=== PATIENT | female | born 1955 | race Caucasian/White ===

== ENCOUNTER 2017-04-20 15:23 | Emergency (ER) | payer OTHER ==
--- NOTE | ~2017-04-20 | CT4 ---
[facility] A Service of [facility] RADIOLOGY TEXT RESULTS PATIENT: KAE LUQUE LOCATION: [facility] : 53 UNIT #: [id number] AGE: [address]: Armando Mcqueen MD SEX: F ORDER DR: [id number] [facility] [address] [place], [place] [address] [id number] MR#: [id number] Acc #: [id number] NAME: KAE LUQUE. : 1955 SEX: F STUDY DATE/TIME: 04/20/2017 16:26 UNIT: [facility] ROOM: STUDY DESCRIPTION: CT Abd and Pelv Wo Cont Attending Physician: Armando Mcqueen M.D. Ordering Physician: Armando Mcqueen M.D. Primary Care Physician: Jame Gold M.D. MEDICAL IMAGING REPORT This report is preliminary unless electronic signature is present EXAM CT abdomen and pelvis without contrast DATE: 04/20/2017 HISTORY Left flank pain which started today. Nausea and vomiting. COMPARISON CT abdomen and pelvis with contrast 12/06/2013. PROCEDURE 3 mm noncontrast axial images through the abdomen and pelvis. Enteric contrast was not administered. Sagittal and coronal reformatted images were obtained. This CT exam was performed with one or more of the following radiation dose reduction techniques: automatic exposure control, adjustment of mA and/or kV according to patient size, and iterative reconstruction. FINDINGS A 2 mm stone is lodged within the left ureteropelvic junction resulting in mild left hydronephrosis and hydroureter. There is mild left perinephric inflammatory stranding. Benign calcified granulomatous changes are present in the spleen. There is a small esophageal hiatal hernia. Cholecystectomy. Noncontrast appearance of the liver, pancreas, adrenals and right kidney is within normal limits. Normal appendix. No free air or free fluid. Wide-mouth ventral abdominal hernia containing nonobstructed small bowel loops. PELVIS FINDINGS: Surgical changes of the sigmoid colon. Urinary bladder is decompressed. Uterus and rectum are normal. No pelvic adenopathy or free fluid is seen. [facility] A Service of [facility] RADIOLOGY TEXT RESULTS PATIENT: KAE LUQUE LOCATION: [facility] : 53 UNIT #: [id number] AGE: [address]: Armando Mcqueen MD SEX: F ORDER DR: Advanced loss of disc height is present at L5-S1 with posterior osteophyte formation. No acute osseous abnormalities are identified. IMPRESSION 1. A 2 mm stone in the left ureteropelvic junction with mild left hydronephrosis, and mild left perinephric inflammatory stranding. 2. Ventral abdominal hernia containing nonobstructed small bowel. 3. Surgical change of the sigmoid colon. 4. Cholecystectomy. 5. Normal appendix. 6. Small esophageal hiatal hernia. Dictated by... Genevieve Martin M.D. THIS IS AN ELECTRONICALLY VERIFIED REPORT Genevieve Martin M.D. at 04/23/2017 8:31 AM JOSE MIGUEL/jigna TD: 04/20/2017 21:04 JOB #: [id number] MEDICAL IMAGING REPORT Page 1 of 1 COPY
[~2017-04-20 15:23] MED LIST: ALLEGRA60 MG PO; AMOX TR-K CLV 81 TA2 PO; ASPIRIN81 MG PO; CLARITIN10 M2 PO; COMBIGAN EYE DRO5 ML OP; COMBIGAN OP; COUMADIN5 MG PO; CYANOCOBALAM1000 MCG PO; DOCU SOFT100 M1 PO; FEROSUL325 ( 651 PO; FERRO-TIME325 MG PO; FLAGYL PO; FOLIC ACID1 MG PO; IRON1 TA1; LEVAQUIN250 MG DOB; LEVAQUIN750 MG PO; LEVOTHYROXINE112 MCG PO; LEVOXYL0.137 MG PO; LOVENOX100 MG/ML INJ; METHYLPREDNISOLO4 MG PO; METRONIDAZOLE PO; NORCO 7.5-3251 EACH PO; OXYCODONE HCL5 M1 PO; PAROXETINE HCL10 MG PO; PREDNISOLONE ACETATE; PREDNISONE; TIMOLOL MAL
[2017-04-20 16:06] LABS: BASOPHIL# 0.1 X10e3 (0-0.3); BASOPHIL% 0.5 % (0-2.5); EOSINOPHIL% 0.4 % (0.0-7.0); HEMATOCRIT 38.6 % (35.0-45.0); HEMOGLOBIN 12.1 gm/dL (12.0-16.0); LYMPHOCYTE# 1.3 X10e3 (1.0-3.5); LYMPHOCYTE% 11.9 % (17.0-45.0); MEAN CELL VOLUME 85.8 FL (83-96); MEAN CORPUSCULAR HEMOGLOBIN 26.9 PG (28-34); MEAN CORPUSCULAR HGB CONC 31.3 g/dL (30-36); MEAN PLATELET VOLUME 8.4 FL (6.5-11.5); MONOCYTE# 0.8 X10e3 (0-1.0); MONOCYTE% 7.8 % (3.0-12.0); NEUTROPHIL# 8.6 X10e3 (1.5-7.1); NEUTROPHIL% 79.4 % (40-75); PLATELET COUNT 274 X10e3 (140-420); RED CELL DISTRIBUTION WIDTH 14.4 % (11.0-15.5); WHITE BLOOD COUNT 10.8 X10e3 (4.0-10.5)
[2017-04-20 16:12] LABS: DIFF IND NO
[2017-04-20 16:29] LABS: URINE SOURCE CLEAN CATCH
[2017-04-20 16:36] LABS: ALBUMIN SERUM 4.1 g/dL (3.5-5.0); BILIRUBIN, DIRECT 0.1 mg/dL (0.0-0.2); BILIRUBIN,INDIRECT 0.3 mg/dL (0.0-0.9); BILIRUBIN,TOTAL 0.4 mg/dL (0.2-2.0); BUN/CREATININE RATIO 22.5; CALCIUM SERUM 9.4 mg/dL (8.4-10.2); CREATININE SERUM 0.8 mg/dL (0.6-1.4); GLOM FILT RATE Estimated 78.5 mL/min (>60); POTASSIUM 3.7 mmol/L (3.5-5.1); PROTEIN TOTAL SERUM 7.6 g/dL (6.0-8.3)
[2017-04-20 16:39] LABS: URINE APPEARANCE CLOUDY; URINE BILIRUBIN NEG (NEG); URINE BLOOD 3+ (NEG); URINE COLOR YELLOW; URINE GLUCOSE NEG (NEG); URINE KETONE TRACE (NEG); URINE LEUKOCYTE ESTERASE 1+ (NEG); URINE NITRATE NEG (NEG); URINE PROTEIN 1+ (NEG); URINE SPECIFIC GRAVITY 1.032 (1.003-1.035)
[2017-04-20 16:42] LABS: CULTURE INDICATED? YES; URBCS1 AUWI INNUM /[HPF] (0-2); URINE BACTERIA AUWI 2+ (NEGATIVE); URINE SQUAMOUS EPITHELIAL CELL MANY /[HPF]
== END 2017-04-20 17:27 | disposition home or self-care (01) ==
LOC: CED 15:23
PROVIDERS: Emergency Medicine
DX: N20.1 Calculus of ureter (principal); Z90.49 Acquired absence of other specified parts of digestive tract; Z88.8 Allergy status to other drugs, medicaments and biological substances
CPT/HCPCS: 36415; 74176; 80048; 80076; 81003; 83690; 85025; 87086; 87088; 87186; 96374; 96375; 99284; J1885; J2270; J2405

== ENCOUNTER → 2017-04-30 | Outpatient (CLI) | payer OTHER ==
--- NOTE | ~2017-04-30 | US77 ---
[facility] A Service of [facility] & [facility] RADIOLOGY TEXT RESULTS PATIENT: KAE LUQUE LOCATION: [facility] : 53 UNIT #: [id number] AGE: [address]: Jame Gold MD SEX: F ORDER DR: [id number] [facility] [address] [place], [place] [address] [id number] O MR#: [id number] Acc #: [id number] NAME: KAE LUQUE : 1955 SEX: F STUDY DATE/TIME: 04/30/2017 13:59 UNIT: [facility] ROOM: STUDY DESCRIPTION: US Kidney Bilateral Complete Attending Physician: Jame Gold M.D. Referring Physician: Jame Gold M.D. Ordering Physician: Jame Gold M.D. Primary Care Physician: Jame Gold M.D. MEDICAL IMAGING REPORT This report is preliminary unless electronic signature is present EXAM Renal ultrasound, 04/30/2017 HISTORY Followup left kidney stone and left hydronephrosis. CT scan of the abdomen and pelvis 04/20/2017 obtained for left flank pain, nausea and vomiting revealed mild left hydronephrosis due to a 2-mm stone in the left ureter. FINDINGS Right kidney measures 12.1 cm, while the left kidney measures 10.7 cm in longitudinal dimensions. There is no evidence of hydronephrosis or nephrolithiasis. No cystic or solid mass lesions were seen on either kidney, and there is normal renal cortical echogenicity. Images of the bladder are normal. IMPRESSION 1. Negative renal ultrasound. 2. Images of the bladder are normal. Dictated by... Julian Milan M.D. THIS IS AN ELECTRONICALLY VERIFIED REPORT Julian Milan M.D. at 05/01/2017 8:10 AM MARS/calin TD: 04/30/2017 21:30 JOB #: [id number] MEDICAL IMAGING REPORT Page 1 of 1 COPY
== END | disposition home or self-care (01) ==
LOC: CGUS 13:35
DX: N13.30 Unspecified hydronephrosis (principal)
CPT/HCPCS: 76770